=== PATIENT | male | born 1970 | race Caucasian/White ===

== ENCOUNTER → 2020-03-06 | Outpatient (CLI) | payer OTHER ==
--- NOTE | 2020-03-06 16:33 | KCIC ---
EXAM: RIGHT SHOULDER 3 VIEWS. HISTORY: Right shoulder pain and limited range of motion. COMPARISON: None. FINDINGS: No fractures are identified. There is mild nonuniform glenohumeral joint space narrowing or inferiorly. Acromioclavicular osteoarthritis is moderate. Inferiorly directed clavicular spurs measure up to 3 mm. IMPRESSION: 1. Moderate acromioclavicular osteoarthritis with inferiorly directed spurring. Correlate for impingement. 2. Findings consistent with early glenohumeral osteoarthritis. Electronically signed by: Dennis Her MD (03/06/2020 4:30 PM) [id number]
== END | disposition home or self-care (01) ==
LOC: KCIC 15:43
PROVIDERS: ATTEND Family Medicine
DX: M19.011 Primary osteoarthritis, right shoulder (principal); M77.9 Enthesopathy, unspecified
CPT/HCPCS: 73030